=== PATIENT | female | born 1950 | race Caucasian/White ===

== ENCOUNTER 2017-01-16 03:28 | Emergency (ER) | payer MEDICARE, BC ==
[~2017-01-16] VITALS: Ht 162.6 cm; Wt 85.0 kg
[2017-01-16 03:34] VITALS: BP 148/66; PULSE 70; RESP 16; TEMP 98.1; O2SAT 98
[2017-01-16] MEDS ORDERED: SIMV40TA PO (03:52)
[2017-01-16] MEDS ORDERED: WELLTAB39 PO (03:52)
[2017-01-16] MEDS ORDERED: LEVO.1 PO (03:52)
[2017-01-16] MEDS ORDERED: VENL75TA PO (03:52)
[2017-01-16] MEDS ORDERED: CYTO25TA PO (03:53)
--- NOTE | 2017-01-16 03:53 | PD ---
HPI Chief Complaint: Injury Time Seen by Provider: 03:50 Travel History International Travel<30 days: No Contact w/Intl Traveler<30days: No Traveled to known affect area: No History of Present Illness HPI Patient is a 66 year old female presenting with right wrist pain after she sustained a mechanical fall onto her outstretched hand at 10 PM last night. Patient states she has been applying ice and taking Tylenol however the pain persists. She reports her pain as a 6 out of 10 described as aching. Pain is exacerbated with movement of the wrist. She denies any numbness, tingling, weakness. She denies any head injury or loss of consciousness. There was no preceding chest pain, shortness breath or dizziness. This was a trip and fall. PFSH Past Medical History Depression: Yes High Cholesterol: Yes Diminished Hearing: No Thyroid Disease: Yes Tetanus Vaccination: < 5 Years Influenza Vaccination: Yes ?: Unknown LMP: MENAPAUSE Past Surgical History Cholecystectomy: Yes Social History Alcohol Use: Yes (SOCIALLY) Tobacco Use: No Substance Use: No Allergies-Medications (Allergen,Severity, Reaction): Coded Allergies: No Known Allergies (Unverified , 01/16/17) Reported Meds & Prescriptions Reported Meds & Active Scripts Active Reported Cytomel (Liothyronine Sodium) 25 Mcg Tab 5 Mcg PO DAILY Effexor (Venlafaxine HCl) 75 Mg Tab 150 Mg PO DAILY Simvastatin 40 Mg Tab 40 Mg PO HS Wellbutrin Xl 24 HR (Bupropion HCl) 300 Mg Tab 450 Mg PO DAILY Synthroid (Levothyroxine Sodium) 100 Mcg Tab 100 Mcg PO DAILY Review of Systems Except as stated in HPI: all other systems reviewed are Neg Musculoskeletal: Positive: Limited ROM, Edema, Pain Physical Exam Narrative GENERAL: Well-nourished, well-developed patient. SKIN: Focused skin assessment warm/dry. HEAD: Normocephalic. EYES: No scleral icterus. No injection or drainage. NECK: Supple, trachea midline. No JVD or lymphadenopathy. CARDIOVASCULAR: Regular rate and rhythm without murmurs, gallops, or rubs. RESPIRATORY: Breath sounds equal bilaterally. No accessory muscle use. GASTROINTESTINAL: Abdomen soft, non-tender, nondistended. MUSCULOSKELETAL: No cyanosis, no obvious deformities noted, mild edema noted over the first metacarpal. Positive radial pulse, brisk is a 3 second capillary refill. BACK: Nontender without obvious deformity. No CVA tenderness. Data Data Last Documented VS Vital Signs Date Time Temp Pulse Resp B/P Pulse Ox O2 Delivery O2 Flow Rate FiO2 01/16/17 03:47 16 99 Room Air 01/16/17 03:34 98.1 70 148/66 Orders Wrist, Complete ([id number]) (01/16/17 ) [facility] Medical Decision Making Medical Screen Exam Complete: Yes Emergency Medical Condition: Yes Interpretation(s) Vital Signs Date Time Temp Pulse Resp B/P Pulse Ox O2 Delivery O2 Flow Rate FiO2 01/16/17 03:47 16 99 Room Air 01/16/17 03:34 98.1 70 16 148/66 98 Differential Diagnosis Fracture versus sprain versus strain versus contusion versus other Narrative Course Patient is a 66 year old female presenting with right wrist pain after she fell onto an outstretched hand approximately 6 hours prior to arrival. Patient is neurovascularly intact, imaging ordered and pending. X-ray of the right wrist is negative for acute bony abnormality. Patient will be placed in soft wrist splint. She is encouraged to continue range of motion exercises, alternate heat and ice to affected area, avoid exacerbating activities. She is encouraged follow-up with her primary care provider return to emergency department for any new or worsening symptoms. Patient verbalized understanding of instructions. Patient is stable for discharge. Diagnosis Primary Impression: Right wrist sprain Qualified Code: S63.501A - Right wrist sprain, initial encounter Referrals: Primary Care Physician Patient Instructions: General Instructions, Wrist Sprain (ED) Additional Instructions: Follow-up with her primary doctor Continue range of motion exercises, alternate heat and ice to affected area, take medications as directed, avoid exacerbating activities Return to emergency department for any new or worsening symptoms Med/Other Pt SpecificInfo: Prescription(s) given Scripts Ibuprofen 600 Mg [id number] Mg PO Q6H PRN (Pain/Inflammation) #40 TAB Ref 0 Prov:Kusum Cameron 01/16/17 Disposition: 01 DISCHARGE HOME Condition: Stable Kusum Cameron Jan 16, 2017 03:53
--- NOTE | 2017-01-16 04:09 | RADRPT ---
EXAM DATE/TIME: 01/16/2017 03:43 [facility] COMPARISON: No previous studies available for comparison. INDICATIONS : Chronic pain in right wrist. MEDICAL HISTORY : None. SURGICAL HISTORY : None. ENCOUNTER: Initial ACUITY: 1 day PAIN SCORE: 10/10 LOCATION: Right wrist FINDINGS: Three view examination of the right wrist demonstrates no soft tissue swelling, dislocation, or fract ure. The carpal bones are in normal alignment. The joint spaces are maintained. Bony mineralizatio n is normal. CONCLUSION: Intact right wrist. Kane Rosas MD on January 16, 2017 at 4:07 Board Certified Radiologist. This report was verified electronically.
[2017-01-16] MEDS ORDERED: IBUP-232 PO (04:23)
== END 2017-01-16 04:46 | disposition home or self-care (01) ==
LOC: NEPD 03:28
DX: S63.501A Unspecified sprain of right wrist, initial encounter (principal); F32.9 Major depressive disorder, single episode, unspecified; E78.00 Pure hypercholesterolemia, unspecified; E07.9 Disorder of thyroid, unspecified; Z79.899 Other long term (current) drug therapy; W01.0XXA Fall on same level from slipping, tripping and stumbling without subsequent striking against object, initial encounter
CPT/HCPCS: 73110; 99283; L3908